=== PATIENT | male | born 1935 | race Caucasian/White ===

== ENCOUNTER 2016-08-20 15:07 | Emergency (ER) | payer MEDICARE, BC ==
[~2016-08-20] VITALS: Ht 175.3 cm; Wt 60.3 kg
[~2016-08-20 15:07] MED LIST: ALBU5SOL6 IH; ASPI-730 PO; BUDE10.2 PO; CHOL10003 PO; CLOP75TA PO; CRAN500C3 PO; CYAN1TAB46 PO; FERR-67 PO; LISI-127 PO; METO100T60 PO; MULT-261 PO; NITR0.4T28 SL; PRED5TAB PO; ROSU10TA13 PO; TIOT18CA6 IH; [UNRECOGNIZED DRUG - CODE] PO
[2016-08-20 15:10] VITALS: Ht 175.3 cm; Wt 60.3 kg
--- OUTSIDE RECORDS SUMMARY | 2016-08-20 15:11 | XMS REPORT | Continuity of Care Document ---
Author Author [facility] Organization [facility] Address Unknown Phone Unavailable Support Name Relationship Address Phone BONNIE CARDOSO DO Caregiver [address] [phone] ANALISA BADILLO MD Caregiver [address] [address] Unavailable YUNIEL FLETCHER MD Caregiver [address] [place] [address] [address] [place], [place] [phone] MANSI DANIELS Next Of Kin Unknown [phone] CP Insurance Providers Payer Name Policy Number Subscriber Name Relationship Medicare [id number] Tracey Estrella 16 Self [facility] [id number] Tracey Estrella 16 Self Advance Directives Directive Response Recorded Date/Time Advanced Directives Type Living Will 10/20/13 11:39am Problems Medical Problems Problem Onset Date Status Chest pain Unknown Active Multiple fractures of ribs of left side with routine healing Unknown Active COPD exacerbation Unknown Active Fecal impaction Unknown Active Fecal impaction Unknown Active Constipation Unknown Active Fecal impaction Unknown Active Medications Medication Dose Route Sig Days/Qty Instructions Order Date Discontinued Date Status Tiotropium Cobb 18 Mcg IH DAILY 02/16/10 Active Flunisolide 250 Mg IH TWICE A DAY 11/14/08 02/16/10 Discontinued Albuterol Sulfate Mg IH NEEDED 02/16/10 Active Lovastatin 10 Mg PO DAILY 11/14/08 01/31/09 Discontinued Metoprolol Tartrate 50 Mg PO TWICE A DAY 02/16/10 Active Diltiazem Hcl 180 Mg PO DAILY 02/16/10 Active Folic Acid 400 Mg PO DAILY 02/16/10 Active Aspirin 81 Mg PO DAILY 11/14/08 02/16/10 Discontinued [Multi Vitamin] DAILY 02/16/10 Active Niacin 1,000 Mg PO DAILY 09/23/08 11/13/08 Discontinued Nitroglycerin 0.4 Mg SL NEEDED PRN 02/16/10 Active Loratadine 10 Mg PO DAILY 01/31/09 02/16/10 Discontinued Rosuvastatin Calcium 10 Mg PO DAILY 02/16/10 Active Aspirin 81 Mg PO DAILY 02/16/10 Active [cranberry vitamin] 1,680 Mg PO DAILY 02/16/10 Active Lisinopril 5 Mg PO DAILY 02/04/13 Active Cholecalciferol 1,000 Unit PO DAILY 02/04/13 Active Formoterol Fumarate 12 Mcg IH TWICE A DAY 10/10/13 Active Mometasone Furoate 220 Mcg IH BEDTIME 10/10/13 Active Azithromycin 1 Pack PO DIRECTED 1 Qty Take 2 tabs the first day then 1 tab daily on days 2 though 10/10/13 Active Hydrocodone Bit/Acetaminophen 1 Tab PO Every 6 Hours PRN PAIN 20 Qty Active Prednisone 20 Mg PO DIRECTED 18 Qty Take 2 pills for 3 days then, 04/13 Active Social History Social History Problem Response Recorded Date/Time Smoking Status Former smoker 10/20/2013 11:40am Hx Substance Use No 10/20/2013 11:40am Hx Alcohol Use Y BEER OCC 10/20/2013 11:40am Query Response Start Date Stop Date Smoking Status Former smoker Hospital Discharge Instructions No hospital discharge instructions. Plan of Care No plan of care. Functional Status No functional status results. Allergies, Adverse Reactions, Alerts Allergen Type Severity Reaction Status Last Updated No Known Allergies Active 10/20/13 Immunizations Name Given Type Hx Influenza Vaccination Y FA LL 2007 Historical Hx Pneumococcal Vaccination Y FALL 2007 Historical Hx Influenza Vaccination Y FA 2007 Historical Vital Signs Acute Vital Signs Vital Response Date/Time Temperature (Fahrenheit) 96.6 deg F (96.8 - 99.1) Temperature (Calculated Celsius) 35.49692 degrees C (36.0 - 37.3) Pulse Rate (adult) 86 bpm (60 - 100) Respiratory Rate 20 breaths/min (10 - 20) O2 Sat by Pulse Oximetry 94 % (90 - 100) Oxygen Flow Rate 3 L/min Blood Pressure 134/60 mm Hg Height 5 ft 9 in Weight 147 lb Body Mass Index 21.0 kg/m^2 Results Test Source Date Result Interp. Ref. Range Comments Activated Partial Thromboplast Time February 04, 2013 10:40am 27.5 SEC N 24-36 Alanine Aminotransferase (ALT/SGPT) October 10, 2013 9:10am 35 U/L N 21-72 Albumin October 10, 2013 9:10am 3.8 G/DL N 3.5-5.0 Albumin/Globulin Ratio October 10, 2013 9:10am 1.2 RATIO N 1.1-2.2 Alkaline Phosphatase October 10, 2013 9:10am 87 U/L N 38-126 Anion Gap October 10, 2013 9:10am 10 MEQ/L N 5-15 Arterial Blood Base Excess February 16, 2010 5:35am 0.1 MMOL/L N -2.0- 2.0 Arterial Blood HCO3 February 16, 2010 5:35am 25 MEQ/L N 22-26 Arterial Blood Oxygen Content February 16, 2010 5:35am 15 - Arterial Blood Oxygen Saturation February 16, 2010 5:35am 100.0 % H 95.0- 98.0 Arterial Blood Partial Pressure CO2 February 16, 2010 5:35am 39 MMHG N 34 -45 Arterial Blood Total CO2 February 16, 2010 5:35am 25.9 MEQ/L N 23-27 Arterial Blood pH February 16, 2010 5:35am 7.410 N 7.350-7.450 Aspartate Amino Transf (AST/SGOT) October 10, 2013 9:10am 30 U/L N 17-59 B-Type Natriuretic Peptide February 16, 2010 5:09am 34 PG/ML N 15-100 BUN/Creatinine Ratio October 10, 2013 9:10am 28 RATIO H 6-26 Band Neutrophils # February 16, 2010 5:09am 0.2 T/MM3 - Band Neutrophils % February 16, 2010 5:09am 12.0 % H 0-6 Basophils # (Auto) October 10, 2013 9:10am 0.0 T/MM3 N 0-0.2 Basophils # (Manual) September 19, 2008 10:40am 0.1 T/MM3 N 0-0.2 Basophils % (Manual) September 19, 2008 10:40am 1.0 % N 0-2 Basophils (%) (Auto) October 10, 2013 9:10am 0.2 % N 0-2 Blood Gas Tidal Volume February 16, 2010 5:35am Not Performed 0-1200 Blood Gas Vent Rate February 16, 2010 5:35am Not Performed 0-30 Blood Urea Nitrogen October 10, 2013 9:10am 17.0 MG/DL N 9-20 Calcium Level October 10, 2013 9:10am 9.4 MG/DL N 8.4-10.2 Calculated Osmolality October 10, 2013 9:10am 276 MOSM/KG N 261-280 Carbon Dioxide Level October 10, 2013 9:10am 30 MEQ/L N 22-30 Chloride Level October 10, 2013 9:10am 100 MEQ/L N 98-107 Creatinine October 10, 2013 9:10am 0.6 MG/DL L 0.8-1.5 Differential Total Cells Counted February 16, 2010 5:09am 100 % - Eosinophils # (Auto) October 10, 2013 9:10am 0.1 T/MM3 N 0-0.5 Eosinophils # (Manual) September 19, 2008 10:40am 0.1 T/MM3 N 0-0.5 Eosinophils % (Manual) September 19, 2008 10:40am 1.0 % N 0-4 Eosinophils (%) (Auto) October 10, 2013 9:10am 0.6 % N 0-4 Globulin October 10, 2013 9:10am 3.2 G/DL N 2.4-3.6 Glucose Level October 10, 2013 9:10am 193 MG/DL H 75-110 Hematocrit October 10, 2013 9:10am 41.9 % N 41-53 Hemoglobin October 10, 2013 9:10am 13.2 GM/DL L 13.5-17.5 Lymphocytes # (Auto) October 10, 2013 9:10am 1.0 T/MM3 N 1-4.8 Lymphocytes # (Manual) February 16, 2010 5:09am 0.5 T/MM3 L 1-4.8 Lymphocytes % (Manual) February 16, 2010 5:09am 32.0 % N 23-45 Lymphocytes (%) (Auto) October 10, 2013 9:10am 7.7 % L 23-45 Magnesium Level October 10, 2013 9:10am 1.6 MG/DL N 1.6-2.3 Mean Corpuscular Hemoglobin October 10, 2013 9:10am 27.0 UUG N 26-34 Mean Corpuscular Hemoglobin Concent October 10, 2013 9:10am 31.5 GM/DL N 31 -37 Mean Corpuscular Volume October 10, 2013 9:10am 85.7 UM3 N 80-100 Mean Platelet Volume October 10, 2013 9:10am 9.8 UM3 N 9.4-12.4 Monocytes # (Auto) October 10, 2013 9:10am 0.9 T/MM3 H 0-0.8 Monocytes # (Manual) February 16, 2010 5:09am 0.0 T/MM3 N 0-0.8 Monocytes % (Manual) February 16, 2010 5:09am 2.0 % N 0-9.0 Monocytes (%) (Auto) October 10, 2013 9:10am 6.9 % N 0-9.0 Neutrophils # (Auto) October 10, 2013 9:10am 10.5 T/MM3 H 1.8-7.7 Neutrophils # (Manual) February 16, 2010 5:09am 0.8 T/MM3 L 1.8-7.7 Neutrophils % (Manual) February 16, 2010 5:09am 52.0 % N 33-66 Neutrophils (%) (Auto) October 10, 2013 9:10am 84.1 % H 33-66 Platelet Count October 10, 2013 9:10am 240 T/MM3 N 130-400 Potassium Level October 10, 2013 9:10am 3.7 MEQ/L N 3.6-5 Prothromb Time International Ratio February 04, 2013 10:40am 0.94 N 0.86- 1.10 THERAPUTIC RANGE=2.00-3.00 FOR ANTI-THROMBOSIS THERAPUTIC RANGE=2.50- 3.50 FOR IMPLANTED VALVE RDW Standard Deviation October 10, 2013 9:10am 47.8 FL N 36.9-50.2 Red Blood Count October 10, 2013 9:10am 4.89 M/MM3 N 4.50-5.90 Sodium Level October 10, 2013 9:10am 140 MEQ/L N 134-144 Total Bilirubin October 10, 2013 9:10am 0.40 MG/DL N 0.20-1.30 Total Protein October 10, 2013 9:10am 7.0 G/DL N 6.3-8.2 Troponin I October 10, 2013 9:10am < 0.012 ng/ml 0-0.12 Urine Bilirubin February 16, 2010 7:05am Negative - Has specimen been collected/obtained? Y Urine Blood February 16, 2010 7:05am Trace H - Has specimen been collected/obtained? Y Urine Collection Type February 16, 2010 7:05am Voided - Has specimen been collected/obtained? Y Urine Color February 16, 2010 7:05am Yellow - Has specimen been collected/obtained? Y Urine Glucose (UA) February 16, 2010 7:05am Negative - Has specimen been collected/obtained? Y Urine Ketones February 16, 2010 7:05am Negative - Has specimen been collected/obtained? Y Urine Leukocyte Esterase February 16, 2010 7:05am Trace H - Has specimen been collected/obtained? Y Urine Nitrite February 16, 2010 7:05am Negative - Has specimen been collected/obtained? Y Urine Protein February 16, 2010 7:05am 2+ H - Has specimen been collected/obtained? Y Urine RBC February 16, 2010 7:05am 1-3 /HPF - Has specimen been collected/obtained? Y Urine Specific [place] February 16, 2010 7:05am 1.015 - Has specimen been collected/obtained? Y Urine Squamous Epithelial Cells February 16, 2010 7:05am Few - Has specimen been collected/obtained? Y Urine Turbidity February 16, 2010 7:05am Clear - Has specimen been collected/obtained? Y Urine Urobilinogen February 16, 2010 7:05am Normal EU/DL - Has specimen been collected/obtained? Y Urine WBC February 16, 2010 7:05am 1-3 /HPF - Has specimen been collected/obtained? Y Urine pH February 16, 2010 7:05am 6.0 - Has specimen been collected/ obtained? Y White Blood Count October 10, 2013 9:10am 12.5 T/MM3 H 4.5-11.0 Chemistry Specimen Hemolysis October 10, 2013 9:10am < 15 0-25 0-25: No Hemolysis.26-70: Slight Hemolysis - can falsely elevate K and Urine Protein. 71-285: Moderate Hemolysis - can falsely elevate K, Troponin I, CA 19-9, PTH, CSF GLucose, and Urine Protein, and can falsely decrease Phenytoin. 286-999: Gross Hemolysis - can falsely elevate K, Troponin I, CA 19-9, PTH, CSF Glucose, and Urine Protine, and can falsely decrease Phenytoin. Recommend specimen recollection. Oxygen Delivery Method (LAB) February 16, 2010 5:35am Simple mask, liters - EKG September 23, 2008 5:39am Complete - Turbidity October 10, 2013 9:10am < 20 0-20 Reactive Lymphocytes % February 16, 2010 5:09am 2.0 % H 0-0 Glomerular Filtration Rate Calc October 10, 2013 9:10am 130 - Reactive Lymphocytes # February 16, 2010 5:09am 0.0 T/MM3 N 0-0 Immature Granulocyte # (Auto) October 10, 2013 9:10am 0.06 T/MM3 H 0.00- 0.03 Immature Granulocyte % (Auto) October 10, 2013 9:10am 0.5 % N 0.0-0.5 Arterial Blood pO2 at Patient Temp February 16, 2010 5:35am 209 MMHG H 80 -100 Icterus Index October 10, 2013 9:10am < 2 0-7 JT-[id number]-Type Natriuretic Peptide October 10, 2013 9:10am 1030 PG/ML H 0- 175 Rule in cut points: <50 years old=450; 50-75 years old=900; >75 years old=1800; When utilizing ProBNP rule-in cut points, adjustment for impaired renal function is typically not required. Blood Culture Blood February 16, 2010 5:45am Escherichia Coli Procedures Procedure Status Date Provider(s) THER/PROPH/DIAG INJ IV PUSH completed 10/10/13 Encounters Encounter Location Date/Time Departed Emergency Room [facility] 10/20/13 10:52am Departed Emergency Room [facility] 10/10/13 9:21am Recent Diagnosis
--- OUTSIDE RECORDS SUMMARY | 2016-08-20 15:11 | XMS REPORT | Referral Summary ---
Author Author [facility] Organization 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) COPD (chronic Active patient obstructive pulmonary disease)(Confirmed) CAD (coronary artery Active patient disease)(Confirmed) Impaired gas Resolved exchange(Confirmed)1 Knowledge Resolved deficit(Confirmed)2 NM (myocardial Active patient infarction)(Confirme d) Tobacco Active patient user(Confirmed) 1Problem added automatically by system based on initiation of Impaired Gas Exchange Plan of Care 2Problem added automatically by system based on initiation of Knowledge Deficit Plan of Care Allergies, Adverse Reactions, Alerts No Known Medication Allergies Medications acetaminophen 325 mg oral tablet 2 tabs, Oral, q4hr, Other (See Comment), 0 Refill(s) Start Date: 06/12/14 Status: Ordered albuterol CFC free 90 mcg/inh inhalation aerosol 2 puffs, Inhalation, QID, as needed for wheezing, rescue inhaler, 0 Refill(s) Start Date: 06/09/14 Status: Ordered aspirin 325 mg, Oral, Daily, 0 Refill(s) Start Date: 06/09/14 Status: Ordered azithromycin 250 mg oral tablet 1 tabs, Oral, Daily, # 2 Each, 0 Refill(s) Start Date: 06/14/14 Stop Date: 06/16/14 Status: Ordered cranberry 1,680 mg, Oral, Daily, 0 Refill(s) Start Date: 06/09/14 Status: Ordered diltiazem 240 mg, Oral, Daily, 0 Refill(s) Start Date: 06/09/14 Status: Ordered folic acid 0.4 mg, Oral, Daily, 0 Refill(s) Start Date: 06/09/14 Status: Ordered lisinopril 20 mg oral tablet 1 tabs, Oral, Daily, 0 Refill(s) Start Date: 06/12/14 Status: Ordered Metoprolol Tartrate 100 mg, Oral, BID, 0 Refill(s) Start Date: 06/09/14 Status: Ordered multivitamin 1 tabs, Oral, Daily, 0 Refill(s) Start Date: 06/09/14 Status: Ordered Nitrostat 0.4 mg, SubLingual, q5min, as needed for chest pain, If chest pain not relieved within 5 minutes of taking the 1st dose, seek immediate medical attention, 0 Refill(s) Start Date: 06/09/14 Status: Ordered omeprazole 20 mg, Oral, Daily, 0 Refill(s) Start Date: 06/09/14 Status: Ordered Plavix 75 mg, Oral, Daily, 0 Refill(s) Start Date: 06/09/14 Status: Ordered rosuvastatin 20 mg, Oral, Daily, 0 Refill(s) Start Date: 06/09/14 Status: Ordered sertraline 50 mg, Oral, Daily, 0 Refill(s) Start Date: 06/09/14 Status: Ordered Spiriva 18 mcg, Inhalation, Daily, 0 Refill(s) Start Date: 06/09/14 Status: Ordered Symbicort 160 mcg-4.5 mcg/inh inhalation aerosol 2 puffs, Inhalation, BID, 0 Refill(s) Start Date: 06/09/14 Status: Ordered Results No data available for this section Immunizations No data available for this section Procedures Procedure Date Related Diagnosis Body Site Placement of stent in cardiac conduit Social History Social History Type Response Smoking Status Former smoker Assessment and Plan No data available for this section
--- OUTSIDE RECORDS SUMMARY | 2016-08-20 15:11 | XMS REPORT | Continuity of Care Document ---
Author Author Terry [facility] LIVE Organization [facility] LIVE Address Unknown Phone Unavailable Support Name Relationship Address Phone YUNIEL FLETCHER MD Caregiver [address] [place] [phone] JONNA GUZMAN MD Caregiver [address] [place] [phone] MANSI DANIELS Next Of Kin Unknown [phone] CP Insurance Providers Payer Name Policy Number Subscriber Name Relationship Medicare [id number] Tracey Estrella 18 Self [facility] [id number] Tracey Estrella 16 Self Advance Directives Directive Response Recorded Date/Time Advanced Directives Type Living Will 10/20/13 11:39am Problems Medical Problems Problem Onset Date Status Chest pain Unknown Active Multiple fractures of ribs of left side with routine healing Unknown Active COPD exacerbation Unknown Active Fecal impaction Unknown Active Fecal impaction Unknown Active Constipation Unknown Active Fecal impaction Unknown Active COPD exacerbation Unknown Active Pneumonia Unknown Active Dyspnea Unknown Active Hypoxia Unknown Active Dyspnea Unknown Active COPD exacerbation Unknown Active Medications Medication Dose Route Sig Days/Qty Instructions Order Date Discontinued Date Status Tiotropium [place] 18 Mcg IH DAILY 02/16/10 Active Flunisolide 250 Mg IH TWICE A DAY 11/14/08 02/16/10 Discontinued Albuterol Sulfate Mg IH NEEDED 02/16/10 Active Lovastatin 10 Mg PO DAILY 11/14/08 01/31/09 Discontinued Metoprolol Tartrate 100 Mg PO TWICE A DAY 02/16/10 Active [...] 10 Mg PO DAILY 02/16/10 Active Aspirin 325 Mg PO DAILY 02/16/10 Active [cranberry vitamin] 1,680 Mg PO DAILY 02/16/10 Active Lisinopril 5 Mg PO DAILY 02/04/13 Active Cholecalciferol 1,000 Unit PO DAILY 02/04/13 Active Clopidogrel Bisulfate 75 Mg PO DAILY 06/26/14 Active Prednisone 20 Mg PO DIRECTED 18 Qty Take 3 pills for 3 days THEN, 02/1207/08/14 Discontinued Social History Social History Problem Response Recorded Date/Time Hx Substance Use No 07/08/2014 8:53pm Hx Alcohol Use Y BEER OCC 07/08/2014 8:53pm Tobacco Usage none 10/10/2013 9:51am Query Response Start Date Stop Date Smoking Status Former smoker Hospital Discharge Instructions No hospital discharge instructions. Plan of Care No plan of care. Functional Status Query Response Date Recorded Physical Hygiene Self July 08, 2014 8:53pm Disabilities None July 08, 2014 8:53pm Devices Used None July 08, 2014 8:53pm Dressing Self July 08, 2014 8:53pm Ambulation Self July 08, 2014 8:53pm Diet Self July 08, 2014 8:53pm Mental Status Alert Oriented July 08, 2014 11:50pm Disabilities None July 08, 2014 8:53pm Devices Used None July 08, 2014 8:53pm Physical Hygiene Self July 08, 2014 8:53pm Dressing Self July 08, 2014 8:53pm Ambulation Self July 08, 2014 8:53pm Diet Self July 08, 2014 8:53pm Allergies, Adverse Reactions, Alerts Allergen Type Severity Reaction Status Last Updated No Known Allergies Active 10/20/13 Immunizations Name Given Type Hx Influenza Vaccination Y FALL 2013 Historical Hx Pneumococcal Vaccination Y FALL 2007 Historical Hx Influenza Vaccination Y FALL 2013 Historical Vital Signs Acute Vital Signs Vital Response Date/Time Temperature (Fahrenheit) 96.9 deg F (96.8 - 99.1) Temperature (Calculated Celsius) 36.03055 degrees C (36.0 - 37.3) Pulse Rate (adult) 80 bpm (60 - 100) Respiratory Rate 32 breaths/min (10 - 20) O2 Sat by Pulse Oximetry 93 % (90 - 100) Oxygen Flow Rate 3.0 L/min Fraction of Inspired Oxygen (FIO2) 60 % Blood Pressure 131/66 mm Hg Results Test Source Date Result Interp. Ref. Range Comments Thyroid Stimulating Hormone (TSH) July 08, 2014 8:30pm 23.10 MIU/L H 0.47-4.68 Activated Partial Thromboplast Time July 08, 2014 8:30pm 25.1 SEC N 24- 36 Alanine Aminotransferase (ALT/SGPT) July 08, 2014 8:30pm 25 U/L N 21- 72 Albumin July 08, 2014 8:30pm 3.6 G/DL N 3.5-5.0 Albumin/Globulin Ratio July 08, 2014 8:30pm 1.2 RATIO N 1.1-2.2 Alkaline Phosphatase July 08, 2014 8:30pm 82 U/L N 38-126 Anion Gap July 08, 2014 8:30pm 10 MEQ/L N 5-15 Arterial Blood Base Excess July 08, 2014 9:16pm 6.3 MMOL/L H -2.0-2.0 Arterial Blood HCO3 July 08, 2014 9:16pm 35 MEQ/L H 22-26 Arterial Blood Oxygen Content February 16, 2010 5:35am 15 - Arterial Blood Oxygen Saturation July 08, 2014 9:16pm 84.0 % L 95.0- 98.0 Arterial Blood Partial Pressure CO2 July 08, 2014 9:16pm 67 MMHG PH 34- 45 Arterial Blood Total CO2 July 08, 2014 9:16pm 36.6 MEQ/L H 23-27 Arterial Blood pH July 08, 2014 9:16pm 7.320 L 7.350-7.450 Arterial Blood pO2 at Patient Temp July 08, 2014 9:16pm 53 MMHG L 80- 100 Aspartate Amino Transf (AST/SGOT) July 08, 2014 8:30pm 28 U/L N 17-59 B-Type Natriuretic Peptide February 16, 2010 5:09am 34 PG/ML N 15-100 BUN/Creatinine Ratio July 08, 2014 8:30pm 22 RATIO N 6-26 Band Neutrophils # July 08, 2014 8:30pm 0.1 T/MM3 - Band Neutrophils % July 08, 2014 8:30pm 1.0 % N 0-6 Basophils # (Auto) October 10, 2013 9:10am 0.0 T/MM3 N 0-0.2 Basophils # (Manual) September 19, 2008 10:40am 0.1 T/MM3 N 0-0.2 Basophils % (Manual) September 19, 2008 10:40am 1.0 % N 0-2 Basophils (%) (Auto) October 10, 2013 9:10am 0.2 % N 0-2 Blood Gas Oxygen Liter Flow July 08, 2014 9:16pm 6 - Blood Gas Oxygen Percent Given July 08, 2014 9:16pm - Blood Gas Tidal Volume July 08, 2014 9:16pm 0-1200 Blood Gas Vent Rate July 08, 2014 9:16pm 0-30 Blood Urea Nitrogen July 08, 2014 8:30pm 22.0 MG/DL H 9-20 Calcium Level July 08, 2014 8:30pm 9.1 MG/DL N 8.4-10.2 Calculated Osmolality July 08, 2014 8:30pm 291 MOSM/KG H 261-280 Carbon Dioxide Level July 08, 2014 8:30pm 33 MEQ/L H 22-30 Chemistry Specimen Hemolysis July 08, 2014 8:30pm < 15 0-25 0-25: No Hemolysis.26-70: Slight [...] can falsely decrease Phenytoin. Recommend specimen recollection. Chloride Level July 08, 2014 8:30pm 102 MEQ/L N 98-107 Creatinine July 08, 2014 8:30pm 1.0 MG/DL N 0.8-1.5 D-Dimer June 26, 2014 3:15pm 720 NG/ML H 0-230 <230 NG/ML D-DU= PRESUMPTIVE NEGATIVE FOR PE OR DVT>230 NG/ML D-DU=ADDITIONAL EVAL FOR PE OR DVT RECOMMENDED Differential Total Cells Counted February 16, 2010 5:09am 100 % - EKG September 23, 2008 5:39am Complete - Eosinophils # (Auto) October 10, 2013 9:10am 0.1 T/MM3 N 0-0.5 Eosinophils # (Manual) July 08, 2014 8:30pm 0.1 T/MM3 N 0-0.5 Eosinophils % (Manual) July 08, 2014 8:30pm 1.0 % N 0-4 Eosinophils (%) (Auto) October 10, 2013 9:10am 0.6 % N 0-4 Globulin July 08, 2014 8:30pm 2.9 G/DL N 2.4-3.6 Glomerular Filtration Rate Calc July 08, 2014 8:30pm 72 - Glucose Level July 08, 2014 8:30pm 263 MG/DL H 75-110 Hematocrit July 08, 2014 8:30pm 38.8 % L 41-53 Hemoglobin July 08, 2014 8:30pm 11.6 GM/DL L 13.5-17.5 Icterus Index July 08, 2014 8:30pm < 2 0-7 Immature Granulocyte # (Auto) October 10, 2013 9:10am 0.06 T/MM3 H 0.00- 0.03 Immature Granulocyte % (Auto) October 10, 2013 9:10am 0.5 % N 0.0-0.5 Influenza Type A Antigen June 26, 2014 5:40pm Negative - Negative for Flu A protein antigen. Assay sensitivity is90%. Influenza Type B Antigen June 26, 2014 5:40pm Negative - Negative for Flu B protein antigen. Assay sensitivity is90%. Lymphocytes # (Auto) October 10, 2013 9:10am 1.0 T/MM3 N 1-4.8 Lymphocytes # (Manual) July 08, 2014 8:30pm 2.4 T/MM3 N 1-4.8 Lymphocytes % (Manual) July 08, 2014 8:30pm 27.0 % N 23-45 Lymphocytes (%) (Auto) October 10, 2013 9:10am 7.7 % L 23-45 Magnesium Level July 08, 2014 8:30pm 2.2 MG/DL N 1.6-2.3 Mean Corpuscular Hemoglobin July 08, 2014 8:30pm 28.0 UUG N 26-34 Mean Corpuscular Hemoglobin Concent July 08, 2014 8:30pm 29.9 GM/DL L 31-37 Mean Corpuscular Volume July 08, 2014 8:30pm 93.5 UM3 N 80-100 Mean Platelet Volume July 08, 2014 8:30pm 9.3 UM3 L 9.4-12.4 Monocytes # (Auto) October 10, 2013 9:10am 0.9 T/MM3 H 0-0.8 Monocytes # (Manual) July 08, 2014 8:30pm 0.8 T/MM3 N 0-0.8 Monocytes % (Manual) July 08, 2014 8:30pm 9.0 % N 0-9.0 Monocytes (%) (Auto) October 10, 2013 9:10am 6.9 % N 0-9.0 NZ-Kqa-R-Type Natriuretic Peptide July 08, 2014 8:30pm 3590 PG/ML H 0- 175 Rule in cut points: <50 years old=450; 50-75 years old=900; >75 years old=1800; When utilizing ProBNP rule-in cut points, adjustment for impaired renal function is typically not required. Neutrophils # (Auto) October 10, 2013 9:10am 10.5 T/MM3 H 1.8-7.7 Neutrophils # (Manual) July 08, 2014 8:30pm 5.5 T/MM3 N 1.8-7.7 Neutrophils % (Manual) July 08, 2014 8:30pm 62.0 % N 33-66 Neutrophils (%) (Auto) October 10, 2013 9:10am 84.1 % H 33-66 Oxygen Delivery Method (LAB) July 08, 2014 9:16pm Nasal cannula,liters - Platelet Count July 08, 2014 8:30pm 238 T/MM3 N 130-400 Potassium Level July 08, 2014 8:30pm 4.2 MEQ/L N 3.6-5 Prothromb Time International Ratio July 08, 2014 8:30pm 0.94 N 0.81- 1.09 THERAPUTIC RANGE=2.00-3.00 FOR ANTI-THROMBOSIS THERAPUTIC RANGE=2.50- 3.50 FOR IMPLANTED VALVE RDW Standard Deviation July 08, 2014 8:30pm 55.2 FL H 36.9-50.2 Reactive Lymphocytes # February 16, 2010 5:09am 0.0 T/MM3 N 0-0 Reactive Lymphocytes % February 16, 2010 5:09am 2.0 % H 0-0 Red Blood Count July 08, 2014 8:30pm 4.15 M/MM3 L 4.50-5.90 Red Cell Morphology Comment July 08, 2014 8:30pm Normal - Sodium Level July 08, 2014 8:30pm 145 MEQ/L H 134-144 Total Bilirubin July 08, 2014 8:30pm 0.20 MG/DL N 0.20-1.30 Total Protein July 08, 2014 8:30pm 6.5 G/DL N 6.3-8.2 Troponin I July 08, 2014 8:30pm 0.023 ng/ml N 0-0.12 Turbidity July 08, 2014 8:30pm < 20 0-20 Urine Bilirubin February 16, 2010 7:05am Negative [...] Has specimen been collected/obtained? Y Urine Specific [place] February 16, 2010 7:05am 1.015 - Has [...] - Has specimen been collected/ obtained? Y Venous Blood Lactate June 26, 2014 4:01pm 3.4 MMOL/L H 0.6-2.2 White Blood Count July 08, 2014 8:30pm 8.8 T/MM3 N 4.5-11.0 Blood Culture Peripheral Blood June 26, 2014 4:07pm NO GROWTH AFTER 5 DAYS Name: TRACEY ESTRELLA Unit #: [id number] : 1935 Sex: M Loc / Svc: ED DOS: 06/26/14 Signed Report #: [id number] DIAGNOSTIC IMAGING REPORT TYPE OF EXAM: CHEST, PA & LATERAL Dictated By: MAXINE SETHI MD INDICATION: ITS.REASON: DYSPNEA, COUGH, RECENT PNEUMONIA CHEST 2-VIEWS UPRIGHT (PA & LAT) COMPARISON: October 10, 2013 FINDINGS: New diffuse airspace opacity throughout both mid to lower lung connor. Areas of bronchiectasis are also noted. Severe emphysema. No pneumothorax. Small bilateral effusions. Heart size is stable. Mediastinal contours are unchanged. Central pulmonary arteries are enlarged suggesting pulmonary artery hypertension. Left cardiac pacemaker defibrillator again noted with right atrial and right ventricular leads. Old bilateral rib deformities Impression: New extensive bilateral mid to lower lung infiltrates which may represent pneumonia, typical or atypical or aspiration. Given the extensive abnormal appearance and significant change since the comparison study, atypical etiologies such as tuberculosis should be considered. There is probably also a superimposed element of mild pulmonary edema. . Procedures Procedure Status Date Provider(s) ROUTINE VENIPUNCTURE completed 06/26/14 CHEST X-RAY 2VW FRONTAL&LATL completed 06/26/14 COMPREHEN METABOLIC PANEL completed 06/26/14 BLOOD GASES ANY COMBINATION completed 06/26/14 ASSAY OF LACTIC ACID completed 06/26/14 ASSAY OF NATRIURETIC PEPTIDE completed 06/26/14 ASSAY OF TROPONIN QUANT completed 06/26/14 BL SMEAR W/DIFF WBC COUNT completed 06/26/14 COMPLETE CBC AUTOMATED completed 06/26/14 FIBRIN DEGRADATION QUANT completed 06/26/14 PROTHROMBIN TIME completed 06/26/14 THROMBOPLASTIN TIME PARTIAL completed 06/26/14 BLOOD CULTURE FOR BACTERIA completed 06/26/14 BLOOD CULTURE FOR BACTERIA completed 06/26/14 INFLUENZA A/B AG EIA completed 06/26/14 ELECTROCARDIOGRAM TRACING completed 06/26/14 AIRWAY INHALATION TREATMENT completed 06/26/14 CBT 1ST HOUR completed 06/26/14 HYDRATE IV INFUSION ADD-ON completed 06/26/14 THER/PROPH/DIAG IV INF INIT completed 06/26/14 TX/PRO/DX INJ NEW DRUG ADDON completed 06/26/14 EMERGENCY DEPT VISIT completed 06/26/14 182817"INJECTION, LEVOFLOXACIN, 250 MG" completed 06/26/14463041"INJECTION, METHYLPREDNISOLONE SODIUM SUCCINATE, UP TO completed 003"INFUSION, NORMAL SALINE SOLUTION , 1000 CC" completed 06/26/148364736% DEXTROSE/WATER (500 ML=1 UNIT) completed 06/26/14 Encounters Encounter Location Date/Time Departed Emergency Room [facility] 07/08/14 8:32pm Departed Emergency Room [facility] 06/26/14 3:33pm Recent Diagnosis
--- OUTSIDE RECORDS SUMMARY | 2016-08-20 15:11 | XMS REPORT | Continuity of Care Document ---
Author Author [facility] Organization [facility] Address Unknown Phone Unavailable Allergies Active Description Code Type Severity Reaction Onset Reported/Identified Relationship to Patient Clinical Status Yes No Known Medication Allergies NKMA N/A N/A 06/09/2014 Medications Problems Date Dx Coded Attending Type Code Diagnosis Diagnosed By 06/09/2014 Baldomero Blank MD Admitting 486 06/19/2014 Baldomero Blank MD Final 250.00 Diabetes mellitus without mention of complication, type II or unspecified t 06/19/2014 Baldomero Blank MD Final 401.9 UNSPECIFIED ESSENTIAL HYPERTENSION 06/19/2014 Baldomero Blank MD Final 414.[address] 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 Visit Date/Time Discharge Status Pt. Type Provider Facility Loc./Unit Complaint [id number] 06/09/2014 09:40:00 2014 14:31:00 DIS Inpatient Baldomero Blank MD [facility] F7SE Pneumonia/ COPD exacerbation/ Resiratory Distress
--- OUTSIDE RECORDS SUMMARY | 2016-08-20 15:11 | XMS REPORT | Continuity of Care Document ---
Author Author Terry [facility] LIVE Organization [facility] LIVE Address Unknown Phone Unavailable Support Name Relationship Address Phone YUNIEL FLETCHER MD Caregiver [address] [place] [phone] FANNY BARBA MD Caregiver [address] [place] [phone] AMNSI DANIESL Next Of Kin Unknown [phone] Insurance Providers Payer Name Policy Number Subscriber Name Relationship Medicare [id number] Tracey Estrella 18 Self [facility] [id number] Tracey Estrella 18 Self Advance Directives Directive [...] Active Hypoxia Unknown Active Dyspnea Unknown Active Medications Medication Dose Route Sig Days/Qty Instructions Order Date Discontinued Date Status Tiotropium [place] 18 Mcg IH DAILY 02/16/10 Active Flunisolide [...] Bisulfate 75 Mg PO DAILY 06/26/14 Active Social History Social History Problem Response Recorded Date/Time Hx Substance Use No 06/26/2014 4:23pm Hx Alcohol Use Y BEER OCC 06/26/2014 4:23pm Tobacco Usage none 10/10/2013 9:51am Query Response Start Date Stop Date Smoking Status Former smoker Hospital Discharge Instructions No hospital discharge instructions. Plan of Care No plan of care. Functional Status Query Response Date Recorded Physical Hygiene Self June 26, 2014 4:23pm Disabilities None June 26, 2014 4:23pm Devices Used None June 26, 2014 4:23pm Dressing Self June 26, 2014 4:23pm Ambulation Self June 26, 2014 4:23pm Diet Self June 26, 2014 4:23pm Mental Status Alert Oriented June 26, 2014 5:41pm Disabilities None June 26, 2014 4:23pm Devices Used None June 26, 2014 4:23pm Physical Hygiene Self June 26, 2014 4:23pm Dressing Self June 26, 2014 4:23pm Ambulation Self June 26, 2014 4:23pm Diet Self June 26, 2014 4:23pm Allergies, Adverse Reactions, Alerts Allergen Type Severity Reaction Status Last Updated No Known Allergies Active 10/20/13 Immunizations Name Given Type Hx Influenza Vaccination Y FALL 2013 Historical Hx Pneumococcal Vaccination Y FALL 2007 Historical Hx Influenza Vaccination Y FALL 2013 Historical Vital Signs Acute Vital Signs Vital Response Date/Time Temperature (Fahrenheit) 96.9 deg F (96.8 - 99.1) Temperature (Calculated Celsius) 36.25266 degrees C (36.0 - 37.3) Pulse Rate (adult) 96 bpm (60 - 100) Respiratory Rate 18 breaths/min (10 - 20) O2 Sat by Pulse Oximetry 92 % (90 - 100) Oxygen Flow Rate 4.5 L/min Blood Pressure 122/97 mm Hg Height 5 ft 9 in Weight 144 lb Body Mass Index 21.0 kg/m^2 Results Test Source Date Result Interp. Ref. Range Comments Influenza Type B Antigen June 26, 2014 5:40pm Negative - Negative for Flu B protein antigen. Assay sensitivity is90%. Influenza Type A Antigen June 26, 2014 5:40pm Negative - Negative for Flu A protein antigen. Assay sensitivity is90%. Activated Partial Thromboplast Time June 26, 2014 3:15pm 22.5 SEC L 24-36 Ordering r/o VTE Yes Alanine Aminotransferase (ALT/SGPT) June 26, 2014 3:15pm 63 U/L N 21 -72 Albumin June 26, 2014 3:15pm 3.7 G/DL N 3.5-5.0 Albumin/Globulin Ratio June 26, 2014 3:15pm 1.3 RATIO N 1.1-2.2 Alkaline Phosphatase June 26, 2014 3:15pm 70 U/L N 38-126 Anion Gap June 26, 2014 3:15pm 14 MEQ/L N 5-15 Arterial Blood Base Excess June 26, 2014 4:35pm 1.7 MMOL/L N -2.0- 2.0 Arterial Blood HCO3 June 26, 2014 4:35pm 29 MEQ/L H 22-26 Arterial Blood Oxygen Content February 16, 2010 5:35am 15 - Arterial Blood Oxygen Saturation June 26, 2014 4:35pm 85.0 % L 95.0- 98.0 Arterial Blood Partial Pressure CO2 June 26, 2014 4:35pm 56 MMHG H 34-45 Arterial Blood Total CO2 June 26, 2014 4:35pm 30.6 MEQ/L H 23-27 Arterial Blood pH June 26, 2014 4:35pm 7.320 L 7.350-7.450 Arterial Blood pO2 at Patient Temp June 26, 2014 4:35pm 55 MMHG L 80 -100 Aspartate Amino Transf (AST/SGOT) June 26, 2014 3:15pm 68 U/L H 17- 59 B-Type Natriuretic Peptide February 16, 2010 5:09am 34 PG/ML N 15-100 BUN/Creatinine Ratio June 26, 2014 3:15pm 17 RATIO N 6-26 Band Neutrophils # June 26, 2014 3:15pm 0.5 T/MM3 - Band Neutrophils % June 26, 2014 3:15pm 3.0 % N 0-6 Basophils # (Auto) October 10, 2013 9:10am 0.0 T/MM3 N 0-0.2 Basophils # (Manual) September 19, 2008 10:40am 0.1 T/MM3 N 0-0.2 Basophils % (Manual) September 19, 2008 10:40am 1.0 % N 0-2 Basophils (%) (Auto) October 10, 2013 9:10am 0.2 % N 0-2 Blood Gas Oxygen Liter Flow June 26, 2014 4:35pm 4 - Blood Gas Oxygen Percent Given June 26, 2014 4:35pm - Blood Gas Tidal Volume June 26, 2014 4:35pm 0-1200 Blood Gas Vent Rate June 26, 2014 4:35pm 0-30 Blood Urea Nitrogen June 26, 2014 3:15pm 20.0 MG/DL N 9-20 Calcium Level June 26, 2014 3:15pm 9.2 MG/DL N 8.4-10.2 Calculated Osmolality June 26, 2014 3:15pm 289 MOSM/KG H 261-280 Carbon Dioxide Level June 26, 2014 3:15pm 26 MEQ/L N 22-30 Chemistry Specimen Hemolysis June 26, 2014 3:15pm < 15 0-25 0-25 : No Hemolysis.26-70: Slight Hemolysis - can falsely elevate K and Urine Protein. 71-285: Moderate Hemolysis - can falsely elevate K, Troponin I, CA 19-9, PTH, CSF GLucose, and Urine Protein, and can falsely decrease Phenytoin. 286-999: Gross Hemolysis - can falsely elevate K, Troponin I, CA 19-9, PTH, CSF Glucose, and Urine Protine, and can falsely decrease Phenytoin. Recommend specimen recollection. Chloride Level June 26, 2014 3:15pm 104 MEQ/L N 98-107 Creatinine June 26, 2014 3:15pm 1.2 MG/DL N 0.8-1.5 D-Dimer June 26, 2014 3:15pm 720 NG/ML H 0-230 <230 NG/ML D-DU= PRESUMPTIVE NEGATIVE FOR PE OR DVT>230 NG/ML D-DU=ADDITIONAL EVAL FOR PE OR DVT RECOMMENDED Differential Total Cells Counted February 16, 2010 5:09am 100 % - EKG September 23, 2008 5:39am Complete - Eosinophils # (Auto) October 10, 2013 9:10am 0.1 T/MM3 N 0-0.5 Eosinophils # (Manual) June 26, 2014 3:15pm 0.4 T/MM3 N 0-0.5 Eosinophils % (Manual) June 26, 2014 3:15pm 2.0 % N 0-4 Eosinophils (%) (Auto) October 10, 2013 9:10am 0.6 % N 0-4 Globulin June 26, 2014 3:15pm 2.8 G/DL N 2.4-3.6 Glomerular Filtration Rate Calc June 26, 2014 3:15pm 58 - Glucose Level June 26, 2014 3:15pm 253 MG/DL H 75-110 Hematocrit June 26, 2014 3:15pm 39.1 % L 41-53 Hemoglobin June 26, 2014 3:15pm 11.8 GM/DL L 13.5-17.5 Icterus Index June 26, 2014 3:15pm < 2 0-7 Immature Granulocyte # (Auto) October 10, 2013 9:10am 0.06 T/MM3 H 0.00- 0.03 Immature Granulocyte % (Auto) October 10, 2013 9:10am 0.5 % N 0.0-0.5 Lymphocytes # (Auto) October 10, 2013 9:10am 1.0 T/MM3 N 1-4.8 Lymphocytes # (Manual) June 26, 2014 3:15pm 2.5 T/MM3 N 1-4.8 Lymphocytes % (Manual) June 26, 2014 3:15pm 14.0 % L 23-45 Lymphocytes (%) (Auto) October 10, 2013 9:10am 7.7 % L 23-45 Magnesium Level October 10, 2013 9:10am 1.6 MG/DL N 1.6-2.3 Mean Corpuscular Hemoglobin June 26, 2014 3:15pm 27.7 UUG N 26-34 Mean Corpuscular Hemoglobin Concent June 26, 2014 3:15pm 30.2 GM/DL L 31-37 Mean Corpuscular Volume June 26, 2014 3:15pm 91.8 UM3 N 80-100 Mean Platelet Volume June 26, 2014 3:15pm 9.5 UM3 N 9.4-12.4 Monocytes # (Auto) October 10, 2013 9:10am 0.9 T/MM3 H 0-0.8 Monocytes # (Manual) June 26, 2014 3:15pm 0.7 T/MM3 N 0-0.8 Monocytes % (Manual) June 26, 2014 3:15pm 4.0 % N 0-9.0 Monocytes (%) (Auto) October 10, 2013 9:10am 6.9 % N 0-9.0 HS-Sfu-A-Type Natriuretic Peptide June 26, 2014 3:15pm 2870 PG/ML H 0-175 Rule in cut points: <50 years old=450; 50-75 years old=900; >75 years old=1800; When utilizing ProBNP rule-in cut points, adjustment for impaired renal function is typically not required. Neutrophils # (Auto) October 10, 2013 9:10am 10.5 T/MM3 H 1.8-7.7 Neutrophils # (Manual) June 26, 2014 3:15pm 13.7 T/MM3 H 1.8-7.7 Neutrophils % (Manual) June 26, 2014 3:15pm 77.0 % H 33-66 Neutrophils (%) (Auto) October 10, 2013 9:10am 84.1 % H 33-66 Oxygen Delivery Method (LAB) June 26, 2014 4:35pm Nasal cannula, liters - Platelet Count June 26, 2014 3:15pm 286 T/MM3 N 130-400 Potassium Level June 26, 2014 3:15pm 4.5 MEQ/L N 3.6-5 Prothromb Time International Ratio June 26, 2014 3:15pm 0.95 N 0.81- 1.09 THERAPUTIC RANGE=2.00-3.00 FOR ANTI-THROMBOSIS THERAPUTIC RANGE=2.50- 3.50 FOR IMPLANTED VALVE RDW Standard Deviation June 26, 2014 3:15pm 53.7 FL H 36.9-50.2 Reactive Lymphocytes # February 16, 2010 5:09am 0.0 T/MM3 N 0-0 Reactive Lymphocytes % February 16, 2010 5:09am 2.0 % H 0-0 Red Blood Count June 26, 2014 3:15pm 4.26 M/MM3 L 4.50-5.90 Sodium Level June 26, 2014 3:15pm 144 MEQ/L N 134-144 Total Bilirubin June 26, 2014 3:15pm 0.40 MG/DL N 0.20-1.30 Total Protein June 26, 2014 3:15pm 6.5 G/DL N 6.3-8.2 Troponin I June 26, 2014 3:15pm 0.021 ng/ml N 0-0.12 Turbidity June 26, 2014 3:15pm < 20 0-20 Urine Bilirubin February 16, [...] Has specimen been collected/obtained? Y Urine Specific [place] February 16, 2010 7:05am 1.015 - Has [...] 3.4 MMOL/L H 0.6-2.2 White Blood Count June 26, 2014 3:15pm 17.8 T/MM3 H 4.5-11.0 Blood Culture Blood February 16, 2010 5:45am Escherichia Coli Name: TRACEY ESTRELLA Unit #: [id number] : 1935 Sex: M Loc / Sv: ED DOS: 06/26/14 Signed Report #: [id number] DIAGNOSTIC IMAGING REPORT TYPE OF EXAM: CHEST, [...] element of mild pulmonary edema. . Procedures No known history of procedures. Encounters Encounter Location Date/Time Departed Emergency Room [facility] 06/26/14 3:33pm Recent Diagnosis
--- OUTSIDE RECORDS SUMMARY | 2016-08-20 15:11 | XMS REPORT | Referral Summary ---
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 Role Phone Osman Lorenzo Primary Care Physician [phone] Encounter VC Date(s): 01/01/15 - 01/01/15 [facility] [address] [place] [id number] Discharge Disposition: 01-Home or Self Care Attending Physician: Latha Mathias APRN Admitting Physician: Latha Mathias APRN Vital Signs No data available for this section Problem List Condition Effective Dates Status Health Status Informant 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
--- OUTSIDE RECORDS SUMMARY | 2016-08-20 15:12 | XMS REPORT | Continuity of Care Document ---
Author Author [facility] Organization [facility] Address Unknown Phone Unavailable Support Name Relationship Address Phone BONNIE CARDOSO DO Caregiver [address] [phone] ANALISA BADILLO MD Caregiver [address] [phone] Unavailable YUNIEL FLETCHER MD Caregiver [address] [place] [address] [address] [place], [place] [phone] MANSI DANIELS Next Of Kin Unknown [phone] CP Insurance Providers Payer Name Policy Number Subscriber Name Relationship Medicare [id number] Tracey Estrella 16 Self [facility] [id number] Tracey Estrella 18 Self Advance Directives Directive [...] Instructions Order Date Discontinued Date Status Tiotropium [place] 18 Mcg IH DAILY 02/16/10 Active Flunisolide [...] F (96.8 - 99.1) Temperature (Calculated Celsius) 35.26614 degrees C (36.0 - 37.3) Pulse Rate [...] Has specimen been collected/obtained? Y Urine Specific [place] February 16, 2010 7:05am 1.015 - Has [...] October 10, 2013 9:10am < 2 0-7 RG-Hce-O-Type Natriuretic Peptide October 10, 2013 9:10am 1030 [...] Encounters Encounter Location Date/Time Departed Emergency Room [facility] 10/20/13 10:52am Departed Emergency Room [facility] 10/10/13 9:21am Recent Diagnosis
--- OUTSIDE RECORDS SUMMARY | 2016-08-20 15:12 | XMS REPORT | Referral Summary ---
Author Organization Unknown Address Unknown Phone Unavailable Encounter VC DAVID [id number] Date(s): 06/09/14 - 06/12/14 [facility] [address] [place] [address] [phone] Discharge Diagnosis: HTN (hypertension) Discharge Diagnosis: Acute on chronic respiratory failure Discharge Disposition: Home or Self Care Attending Physician: Baldomero Blank MD Admitting Physician: Baldomero Blank MD Vital Signs Most recent to 1 oldest [Reference Range]: Temperature Oral 36.7 degC [35.8-37.3 degC] (06/12/14 3:51 AM) Peripheral Pulse 91 bpm Rate [60-100 bpm] (06/12/14 9:26 AM) Heart Rate Monitored 76 bpm [60-100 bpm] (06/12/14 1:27 PM) Respiratory Rate 20 br/min [14-20 br/min] (06/12/14 1:27 PM) Blood Pressure 159/89 mmHg [90-140/60-90 mmHg] *HI* (06/12/14 9:26 AM) Mean Arterial 106 mmHg Pressure, Cuff (06/10/14 9:55 AM) Most recent to 1 oldest [Reference Range]: SpO2 95 % (06/12/14 10:07 AM) Problem List Condition Effective Dates Status Health Status Informant 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) COPD (chronic Active patient obstructive pulmonary disease)(Confirmed) CAD (coronary artery Active patient disease)(Confirmed) Impaired gas Resolved exchange(Confirmed)1 Knowledge Resolved deficit(Confirmed)2 WA (myocardial Active patient infarction)(Confirme d) Tobacco Active [...] needed for wheezing, rescue inhaler, 0 Refill(s) Special Instructions: rescue inhaler Start Date: 06/09/14 Status: Ordered aspirin 325 mg, Oral, Daily, 0 Refill(s) Start Date: 06/09/14 Status: Ordered azithromycin 250 mg oral tablet 1 tabs, Oral, Daily, # 2 Each, 0 Refill(s) Start Date: 06/14/14 Stop Date: 06/16/14 Status: Ordered cefpodoxime 200 mg oral tablet 1 tabs, Oral, q12hr, X 6 days, # 12 tabs, 0 Refill(s), other reason (Rx) Start Date: 06/12/14 Stop Date: 06/18/14 Status: Ordered cranberry 1,680 mg, Oral, Daily, [...] dose, seek immediate medical attention, 0 Refill(s) Special Instructions: If chest pain not relieved within 5 minutes of taking the 1st dose, seek immediate medical attention Start Date: 06/09/14 Status: Ordered omeprazole 20 mg, Oral, Daily, 0 Refill(s) Start Date: 06/09/14 Status: Ordered Plavix 75 mg, Oral, Daily, 0 Refill(s) Start Date: 06/09/14 Status: Ordered predniSONE 10 mg oral tablet See Instructions, 30 mg po daily 06/13-06/14/14 then 20 mg po daily 06/15- then 10 mg po daily 06/18-06/20/14 then DC #QS, # 1 Each, 0 Refill(s), other reason (Rx) Special Instructions: 30 mg po daily 06/13-06/14/14 then 20 mg po daily 06/15-06/17/14 then 10 mg po daily 06/18-06/20/14 then DC #QS Start Date: 06/12/14 Stop Date: 06/20/14 Status: Ordered rosuvastatin 20 mg, Oral, Daily, 0 Refill(s) Start Date: 06/09/14 Status: Ordered sertraline 50 mg, Oral, Daily, 0 Refill(s) Start Date: 06/09/14 Status: Ordered Spiriva 18 mcg, Inhalation, Daily, 0 Refill(s) Start Date: 06/09/14 Status: Ordered Symbicort 160 mcg-4.5 mcg/inh inhalation aerosol 2 puffs, Inhalation, BID, 0 Refill(s) Start Date: 06/09/14 Status: Ordered Results Hematology Most recent to 1 oldest [Reference Range]: WBC [4.8-10.8 K/uL] 20.6 K/uL *HI* (06/12/14 8:37 AM) RBC [4.60-6.20 M/uL] 4.97 M/uL (06/12/14 8:37 AM) Hgb [14.0-18.0 13.9 gm/dL gm/dL] *LOW* (06/12/14 8:37 AM) Hct [42.0-52.0 %] 43.1 % (06/12/14 8:37 AM) MCV [82.0-99.0 fL] 86.7 fL (06/12/14 8:37 AM) MCH [27.0-32.0 pg] 28.0 pg (06/12/14 8:37 AM) MCHC [32.0-36.0 32.3 gm/dL gm/dL] (06/12/14 8:37 AM) RDW [11.5-14.5 %] 14.6 % *HI* (06/12/14 8:37 AM) Platelet [150-400 336 K/uL K/uL] (06/12/14 8:37 AM) MPV [9.4-12.3 fL] 9.5 fL (06/12/14 8:37 AM) Immature 0.5 % Granulocytes (06/09/14 10:00 AM) [0.0-1.0 %] Neutrophils [51-75 67 % %] (06/09/14 10:00 AM) Lymphocytes [20-46 12 % %] *LOW* (06/09/14 10:00 AM) Monocytes [4-11 %] 21 % *HI* (06/09/14 10:00 AM) Eosinophils [0-4 %] 0 % (06/09/14 10:00 AM) Basophils [0-2 %] 0 % (06/09/14 10:00 AM) Neutro Absolute 3.71 THOUS [1.90-7.00 THOUS] (06/09/14 10:00 AM) Lymph Absolute 0.64 THOUS [0.80-3.30 THOUS] *LOW* (06/09/14 10:00 AM) [place] Absolute 1.17 THOUS [0.30-1.00 THOUS] *HI* (06/09/14 10:00 AM) Eos Absolute 0.00 THOUS [0.00-0.50 THOUS] (06/09/14 10:00 AM) Baso Absolute 0.00 THOUS [0.00-0.20 THOUS] (06/09/14 10:00 AM) Nucleated RBC 0.0 /100 WBC Automated [0 /100 (06/09/14 10:00 AM) WBC] Coagulation Most recent to 1 oldest [Reference Range]: INR [0.9-1.2] 1.1 (06/10/14 3:41 AM) Chemistry Most recent to 1 oldest [Reference Range]: Sodium Lvl [136-144 143 mEq/L mEq/L] (06/12/14 8:37 AM) Potassium Lvl 3.7 mEq/L [3.6-5.1 mEq/L] (06/12/14 8:37 AM) Chloride [99-109 97 mEq/L mEq/L] *LOW* (06/12/14 8:37 AM) CO2 [22-32 mEq/L] 37 mEq/L *HI* (06/12/14 8:37 AM) AGAP [3-20] 9 (06/12/14 8:37 AM) BUN [4-20 mg/dL] 40 mg/dL *HI* (06/12/14 8:37 AM) Glucose Lvl [70-100 120 mg/dL mg/dL] *HI* (06/12/14 8:37 AM) Creatinine Lvl 1.02 mg/dL [0.64-1.27 mg/dL] (06/12/14 8:37 AM) eGFR [>60] >60 4 (06/12/14 8:37 AM) Calcium Lvl 10.2 mg/dL [8.6-10.0 mg/dL] *HI* (06/12/14 8:37 AM) Albumin Lvl [3.5-4.8 3.0 gm/dL gm/dL] *LOW* (06/09/14 10:00 AM) Total Protein 7.0 gm/dL [6.1-7.9 gm/dL] (06/09/14 10:00 AM) Globulin [1.9-4.3 4.0 gm/dL gm/dL] (06/09/14 10:00 AM) ALT [17-63 unit/L] 24 unit/L (06/09/14 10:00 AM) AST [15-41 unit/L] 25 unit/L (06/09/14 10:00 AM) Alk Phos [26-104 70 unit/L unit/L] (06/09/14 10:00 AM) Bili Total [0.2-1.2 0.5 mg/dL 3 mg/dL] (06/09/14 10:00 AM) Magnesium Lvl 2.0 mg/dL [1.8-2.5 mg/dL] (06/10/14 3:41 AM) Phosphorus [2.4-4.7 2.3 mg/dL 2 mg/dL] *LOW* (06/10/14 3:41 AM) BNP [0-99 pg/mL] 191 pg/mL *HI* (06/12/14 8:37 AM) Troponin [<0.06 0.10 ng/mL 1 ng/mL] *HHI* (06/10/14 3:50 PM) Lactic Acid Lvl 1.4 mEq/L [0.5-2.2 mEq/L] (06/09/14 10:00 AM) Blood Glucose, 105 mg/dL Capillary [70-100 *HI* mg/dL] (06/12/14 11:27 AM) Chol [0-200 mg/dL] 98 mg/dL (06/10/14 3:41 AM) Trig [0-150 mg/dL] 81 mg/dL (06/10/14 3:41 AM) HDL [>40 mg/dL] 36 mg/dL *ABN* (06/10/14 3:41 AM) LDL [0-100 mg/dL] 46 mg/dL (06/10/14 3:41 AM) VLDL Cholesterol 16 mg/dL [0-30 mg/dL] (06/10/14 3:41 AM) Cardiac Risk 2.7 [0.0-5.7] (06/10/14 3:41 AM) TSH with Reflex Free 1.83 T4 [0.35-5.50] (06/09/14 8:39 PM) Hgb A1c [4.1-5.6 %] 6.5 % *HI* (06/09/14 8:39 PM) eAvg Glucose 139.9 mg/dL (06/09/14 8:39 PM) 1Result Comment: Critical value called, and read-back verified. Called to Stephane Ram 06/10/2014 16:26 2Result Comment: High dosages of liposomal Amphotericin B (AmBisome) therapy or other drug preparations that use a liposomal envelope to facilitate drug delivery may cause falsely elevated results for phosphorus. 3Result Comment: Naproxen, specifically the metabolite O-desmethylnaproxen, may cause spurious elevation in Total Bilirubin levels. 4Result Comment: Multiply eGFR results by 1.21 for race. Microbiology Reports PROCEDURE: Respiratory Virus Panel - PCR STATUS: Auth (Verified) BODY SITE: SOURCE: Nasopharyngeal Swab COLLECTED DATE/TIME: 06/09/14 8:56 PM PROCEDURE: Blood Culture STATUS: Order in Progress BODY SITE: SOURCE: Blood COLLECTED DATE/TIME: 06/09/14 11:23 AM PROCEDURE: Blood Culture STATUS: Order in Progress BODY SITE: SOURCE: Blood COLLECTED DATE/TIME: 06/09/14 11:18 AM Immunizations No data available for this section Procedures Procedure Date Related Diagnosis Body Site Placement of stent in cardiac conduit Social History Social History Type Response Smoking Status Former smoker Assessment and Plan No data available for this section
--- OUTSIDE RECORDS SUMMARY | 2016-08-20 15:12 | XMS REPORT | Referral Summary ---
Author Author [facility] Organization [facility] Address Unknown Phone Unavailable Care Team Providers Care College Tutor Name Role Phone Osman Lorenzo Primary Care Physician [phone] Encounter VC Date(s): 11/10/14 - 11/10/14 [facility] [address] [place] [address] Discharge Disposition: 01-Home or Self Care Attending Physician: Latha Mathias APRN Admitting Physician: Latha Mathias APRN Vital Signs No data available for this section Problem List Condition Effective Dates Status Health Status Informant 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
--- NOTE | 2016-08-20 15:25 | ERPDOC ---
Departure Disposition Decision Date: Aug 20, 2016 Disposition Decision Time: 18:51 (PETER MUELLER APRN) Disposition: 01 DISCHARGED HOME, SELF-CARE Impression Impression (PETER MUELLER APRN) Impression: Primary Impression: Pulmonary edema Chronicity: chronic Qualified Codes: J81.1 - Chronic pulmonary edema Additional Impressions: Acute exacerbation of congestive heart failure Congestive heart failure type: unspecified congestive heart failure type Qualified Codes: I50.9 - Heart failure, unspecified Hypoxia Severity: Moderate (PETER MUELLER APRN) Condition: Improved Seen By: Mid-level only (PETER MUELLER APRN) Referrals: YUNIEL FLETCHER MD (Family) Patient Instructions: Pulmonary Edema (ED) Problems/Meds/Labs Reviewed?: Yes Medications reviewed and manag: Yes (PETER MUELLER APRN) Additional Instructions: Your labs and chest x-ray indicated pulmonary edema. Follow treatment plan. Follow with your transportation solutions manager or PCP next week for re-evaluation. Follow up care ordered?: Yes Mental Status: Alert, Oriented (PETER MUELLER APRN) HPI - Dyspnea General Chief Complaint: Dyspnea/Respdistress Stated Complaint: DIFF BREATHING,CHEST PAIN Time Seen by Provider: 15:24 Source: patient, EMS (PETER MUELLER APRN) Time Seen by Provider: 15:24 (LEEANN DAVLIA DO) HPI - Dyspnea Initial Comments 81 YO M brought to ED via EMS for dyspnea and low SpO2. Patient reports that he became lightheaded and SOA when leaving his house today. He called EMS who reported getting SpO2 in the 70s. Patient arrives on a NRB at 10 L of O2. [facility]. Patient reports the only medication he was sent home on was a prednisone taper. Patient denies any fever, chills, CP, nausea or diaphoresis. Admits intermittent nonproductive cough. Patient is immediately able to go home O2/NC at 4L after arriving to the ED maintaining SpO2 above 93%. Patient is always on O2/NC at 3-4L. RN who received patient states that patient has cool hands and wonders if initial SpO2 was accurate from EMS. Associated Symptoms: cough, shortness of breath, DENIES: chest pain, diaphoresis, fever/chills, loss of appetite, malaise, nausea/vomiting, syncope, weakness (ELSY MUELLERS A THERMOMETER TESTER) Allergies: Coded Allergies: No Known Allergies (Verified , 07/16/15) Past History Past Medical History Metabolic: cancer, hypercholesterolemia, hypertension Cardiac: CAD, CHF Respiratory: COPD (emphysema), pneumonia GI: DENIES: ulcers Male: DENIES: renal insufficiency Neurological: DENIES: seizures Musculoskeletal: DENIES: back pain, neck pain Psychological: DENIES: depression (ELSY MUELLERS A THERMOMETER TESTER) Surgical History General: hernia Cardiac: cardiac stent, implantable defib, pacemaker Reproductive/: prostatectomy Joint: foot (PETER MUELLER THERMOMETER TESTER) Family History Family PMH: FOUND: hypertension (PETER MUELLER THERMOMETER TESTER) Vaccines Hx Influenza Vaccination: Yes (FALL 2013) Hx Pneumococcal Vaccination: Yes (FALL 2007) (PETER MUELLER THERMOMETER TESTER) Social History Current Occupational Status: retired (PETER MUELLER APRN) Review of Systems Constitutional Constitutional: DENIES: chills, dizziness, fever, weakness (ELSY MUELLERS A THERMOMETER TESTER) Eyes General: DENIES: erythema, exudate Lids/Accessories: DENIES: erythema, swelling (ELSY MUELELRS A THERMOMETER TESTER) ENMT Ears: DENIES: pain Sinuses: DENIES: congestion, rhinorrhea Mouth/Throat: DENIES: sore throat (ELSY MUELLERS A THERMOMETER TESTER) Cardiovascular Cardiac: DENIES: chest pain, dyspnea on exertion, murmur Rhythm/Rate: DENIES: palpitations (ELSY MUELLERS A THERMOMETER TESTER) Pulmonary Respiratory: cough, dyspnea, see HPI (ELSY MUELLERS A THERMOMETER TESTER) GI Upper Abdomen: DENIES: nausea, pain, vomiting Lower Abdomen: DENIES: diarrhea, pain (ELSY MUELLERS A THERMOMETER TESTER) General: DENIES: dysuria, pain (ELSY MUELLERS A THERMOMETER TESTER) Musculoskeletal General: DENIES: joint pain, pain, tenderness (ELSY MUELLERS A THERMOMETER TESTER) Integumentary Skin: DENIES: color change, itching, rash (ELSY MUELLERS A THERMOMETER TESTER) Neurological General: DENIES: ataxia, change in strength, numbness, paralysis/paresis, weakness (ELSY MUELLERS A THERMOMETER TESTER) Psychiatric Psychiatric: DENIES: anxiety, depression, nervousness (ELSY MUELLERS A THERMOMETER TESTER) Physical Exam General General Nourishment: well nourished, well developed, adult General Body Habitus: disheveled (PETER MUELLER A THERMOMETER TESTER) Vitals and Pain (LEEANN DAVILA DO) Vitals and Pain Weight: Kilograms: 60.300 Height (feet): 5 Height (inches): 9.00 Triage Pain Scale: (ELSY MUELLERS A THERMOMETER TESTER) Eyes (brief) Eyes Brief: found: EOMI (ELSY MUELLERS A THERMOMETER TESTER) ENMT (brief) ENMT Brief: FOUND: mucosa moist, NOT FOUND: nasal exudate, nasal swelling, pharnyx erythema (ELSY MUELLERS A THERMOMETER TESTER) Neck (brief) Neck: FOUND: trachea midline, NOT FOUND: adenopathy, tenderness, thyromegaly ( ELSY MUELLERS A THERMOMETER TESTER) Respiratory Inspection: FOUND: tachypnea (24), NOT FOUND: asymmetry Auscultation: FOUND: decreased (diminished throughout), NOT FOUND: rales, wheezes (ELSY MUELLERS A THERMOMETER TESTER) Cardiovascular (brief) Cardiac: FOUND: regular rate, regular rhythm Pulses: all distal extremities, equal (ELSY MUELLERS A THERMOMETER TESTER) Abdomen (brief) Abdominal Brief: FOUND: bowel normo active x4, soft, NOT FOUND: tender (ELSY MUELLERS A THERMOMETER TESTER) Musculoskeletal (brief) Musculoskeletal Brief: NOT FOUND: deformity, loss of motion (ELSY MUELLERS A THERMOMETER TESTER) Integumentary (brief) Integumentary Brief: FOUND: dry, pink, warm (ELSY MUELLERS A THERMOMETER TESTER) Neurologic (brief) Neurological Brief: FOUND: motor-no gross deficits, sensory-no gross deficits ( ELSY MUELLERS A THERMOMETER TESTER) Psychiatric (brief) Psychiatric Brief: FOUND: alert, normal affect, oriented (ELSY MUELLERS A THERMOMETER TESTER ) Differential Diagnoses Considering: Acute Bronchitis, Acute IN, CHF, COPD Exacerbation, Pneumonia, Pulmonary Edema (ELSY MUELLERS A THERMOMETER TESTER) Progress Results/Orders Orders Procedure Category Date Status Time Cmp - Comprehensive LAB 08/20/16 Complete Metabolic 15:31 Probnp LAB 08/20/16 Complete 15:31 Cbc W/Auto LAB 08/20/16 Complete Diff-Reflex Manual 15:31 Troponin I W LAB 08/20/16 Complete Hemolysis Index 15:31 EKG EKG 08/20/16 Taken 15:31 Chest, Pa & Lateral RAD 08/20/16 Resulted 15:31 Iv Lock (Ed Only) EDM 08/20/16 Transmitted 15:31 Albuterol/Ipratropium PHA 08/20/16 Complete (Duoneb) 15:45 Oxygen Administration EDM 08/20/16 Transmitted 15:31 Furosemide (Lasix) PHA 08/20/16 Complete 16:45 Blood Culture BARB 08/20/16 Complete Lactate - Lactic Acid LAB 08/20/16 Complete (LEEANN DAVILA DO) Lab Results Laboratory Tests Test 08/20/16 15:00 08/20/16 17:33 White Blood Count 16.7T/MM3 Red Blood Count 4.06M/MM3 Hemoglobin 11.9GM/DL Hematocrit 40.2% Mean Corpuscular Volume 99.0UM3 Mean Corpuscular Hemoglobin 29.3UUG Mean Corpuscular Hemoglobin Concent 29.6GM/DL RDW Standard Deviation 50.7FL Platelet Count 211T/MM3 Mean Platelet Volume 10.4UM3 Immature Granulocyte % (Auto) % Neutrophils (%) (Auto) % Lymphocytes (%) (Auto) % Monocytes (%) (Auto) % Eosinophils (%) (Auto) % Basophils (%) (Auto) % Absolute Immature Granulocyte (auto T/MM3 Absolute Neutrophils (auto) T/MM3 Absolute Lymphocytes (auto) T/MM3 Absolute Monocytes (auto) T/MM3 Absolute Eosinophils (auto) T/MM3 Absolute Basophils (auto) T/MM3 Neutrophils % (Manual) 53.0% Lymphocytes % (Manual) 37.0% Reactive Lymphocytes % 2.0% Monocytes % (Manual) 4.0% Eosinophils % (Manual) 4.0% Absolute Neutrophils (Manual) 8.9T/MM3 Lymphocytes # (Manual) 6.2T/MM3 Reactive Lymphocytes # 0.3T/MM3 Monocytes # (Manual) 0.7T/MM3 Eosinophils # (Manual) 0.7T/MM3 Red Cell Morphology Comment Normal Turbidity < 20 Sodium Level 148MEQ/L Potassium Level 4.6MEQ/L Chloride Level 104MEQ/L Carbon Dioxide Level 28MEQ/L Anion Gap 16MEQ/L Blood Urea Nitrogen 21.0MG/DL Creatinine 1.0MG/DL Glomerular Filtration Rate Calc 71 BUN/Creatinine Ratio 21RATIO Glucose Level 272MG/DL Calculated Osmolality 297MOSM/KG Calcium Level 10.0MG/DL Total Bilirubin 0.40MG/DL Icterus Index < 2 Aspartate Amino Transf (AST/SGOT) 186U/L Alanine Aminotransferase (ALT/SGPT) 108U/L Alkaline Phosphatase 70U/L Troponin I 0.032ng/ml BN-Spm-N-Type Natriuretic Peptide 5260PG/ML Total Protein 6.1G/DL Albumin 3.8G/DL Globulin 2.3G/DL Albumin/Globulin Ratio 1.7RATIO Chemistry Specimen Hemolysis < 15 Plasma Lactate 1.3MMOL/L (LEEANN DAVILA DO) Medications Current ED Medications Albuterol/ Ipratropium (Duoneb) 3 ml O ONCE AEROSOL Last administered on 15:57; Start 08/20/16 at 15:45; Stop 08/20/16 at 15:46; Status DC Furosemide (Lasix) 40 mg O ONCE IV Last administered on 08/20/16 16:59; Start 08/20/16 at 16:45; Stop 08/20/16 at 16:46; Status DC (LEEANN DAVILA DO) Progress Progress Patient is on 4L/NC of O2 which is patient's baseline WBC 16.7 most likely elevated from prednisone, patient has reactive lymph, no bands Troponin 0.032 most likely elevated due to fluid overload Pro BNP 5260 AST 186 ALT 108 Lactate 1.3 Patient reports feeling much better after 40mg of lasix IV. Patient has void large amount of urine, however patient is incontinent so unable to measure amount. I discussed patient's HPI, PMH, labs, EKG, CXR, VS with Dr. Davila who agrees with plan of care. I discussed labs, EKG, CXR and conversation I had with Dr. Mueller at the OR. Patient states he would like to go home. Patient verbalized understanding of treatment plan, close follow up with PCP and return precautions. (PETER MUELLER APRN) Progress Chest x-ray shows infiltrates consistent with fluid overload. There are no findings currently suggestive of an infectious infiltrate. Patient's white blood cell count is most likely reactive secondary to prednisone. Patient is on his home oxygen settings in the emergency department and is not hypoxic. Patient is discussed with OR who does not feel the patient meets criteria for admission to their facility. Patient is offered admission to [facility] which he declines. Patient states that he does not wish to be admitted to the hospital and will pursue outpatient follow-up. He was given Lasix in the emergency department with improvement of symptoms. Risk versus benefit of outpatient follow-up as opposed to admission to the hospital were discussed in detail with the patient who verbalizes agreement and understanding. Labs/ imaging were discussed in detail with the patient and questions are answered. Patient's diuresis will be managed by his primary care physician. Patient is to follow up with his primary care physician tomorrow. He is to return to the emergency department if his condition worsens or changes in any manner. Patient is in agreement with the current plan of management. He is discharged home in improved condition. (LEEANN DAVILA DO) EKG EKG : Rate: 60-100 Rhythm: sinus QRS: RBBB Intervals: normal ST/T: non-specific changes Interpreted by: signing physician (Dr. Davila) (PETER MUELLER APRN) Consult/PCP Consult/PCP : Physician Contacted: Dr. Mueller Type of discussion: Admit Discussion/PCP Discussion Details I discussed patient's HPI, PMH, labs, EKG, CXR, VS, exam findings and treatment in our ED with Dr. Mueller at the OR ED. Dr. Mueller said that he does not feel that patient needs to be admitted. Dr. Mueller agrees treated pulmonary edema with lasix. Patient may go home and follow with PCP for re-evaluation. (PETER MUELLER APRN) Xray Xray : Xray: CXR PA/Lat (fluid overload, cannot rule out infiltrated (Dr. Davila)) (PETER MUELLER APRN) PETER MUELLER APRN Aug 20, 2016 15:25 LEEANN DAVILA DO Aug 22, 2016 18:40 LEEANN DAVILA DO Aug 22, 2016 18:40
[2016-08-20] MEDS ORDERED: FORM12CA ORAL INH (15:41)
[2016-08-20] MEDS ORDERED: MOME220A2 ORAL INH (15:41)
[2016-08-20] MEDS ORDERED: ROSU20TA PO (15:41)
[2016-08-20 15:42] LABS: HCT - HEMATOCRIT 40.2 % (41-53); HGB - HEMOGLOBIN 11.9 GM/DL (13.5-17.5); MEAN CORPUSCULAR HGB 29.3 UUG (26-34); MEAN CORPUSCULAR HGB CONC(MCHC 29.6 GM/DL (31-37); MEAN PLATELET VOLUME 10.4 UM3 (9.4-12.4); RED BLOOD COUNT 4.06 M/MM3 (4.50-5.90); WBC - WHITE BLOOD COUNT 16.7 T/MM3 (4.5-11.0)
[2016-08-20] MEDS ORDERED: ALBUTEROL/IPRATROPIUM INHAL. 2.5mg-0.5mg/3ml Neb. AEROSOL ONE (15:45)
[2016-08-20] MEDS ORDERED: ASPI81TA2 PO (15:46)
[2016-08-20] MEDS ORDERED: FOLI0.4T2 PO (15:46)
[2016-08-20] MEDS ORDERED: LANS15CA5 PO (15:46)
[2016-08-20 15:53] LABS: ALBUMIN 3.8 G/DL (3.5-5.0); ALBUMIN/GLOBULIN RATIO 1.7 RATIO (1.1-2.2); ALKALINE PHOSPHATASE 70 U/L (38-126); ALT (SGPT) 108 U/L (21-72); ANION GAP 16 MEQ/L (5-15); AST (SGOT) 186 U/L (17-59); BUN/CREATININE RATIO 21 RATIO (6-26); CHLORIDE 104 MEQ/L (98-107); CO2 - CARBON DIOXIDE 28 MEQ/L (22-30); GLOMERULAR FILTRATION RATE 71; GLUCOSE 272 MG/DL (75-110); POTASSIUM 4.6 MEQ/L (3.6-5); SODIUM 148 MEQ/L (134-144); TOTAL PROTEIN 6.1 G/DL (6.3-8.2)
[2016-08-20 16:04] LABS: PROBNP 5260 PG/ML (0-175)
[2016-08-20 16:06] LABS: EOSINOPHILS # (MANUAL) 0.7 T/MM3 (0-0.5); LYMPHOCYTES # (MANUAL) 6.2 T/MM3 (1-4.8); MONOCYTES # (MANUAL) 0.7 T/MM3 (0-0.8); NEUTROPHILS #(MANUAL)-ABSOLUTE 8.9 T/MM3 (1.8-7.7); REACTIVE LYMPHOCYTES # 0.3 T/MM3 (0-0); TOTAL CELLS COUNTED 100 %
[2016-08-20] MEDS ORDERED: FUROSEMIDE 40 MG/4 ML INJECTION IV ONE (16:45)
--- OUTSIDE RECORDS SUMMARY | 2016-08-20 17:59 | XMS REPORT | Continuity of Care Document ---
Author Author [facility] Organization [facility] Address Unknown Phone Unavailable Support Name Relationship Address Phone YUNIEL FLETCHER MD Caregiver [address] [place] [phone] JONNA GUZMAN MD Caregiver [address] [place] [phone] MANSI DANIELS Next Of Kin Unknown [phone] CP Insurance Providers Payer Name Policy Number Subscriber Name Relationship Medicare [id number] Tracey Estrella 16 Self [facility] [id number] Tracey Estrella 16 Self Advance Directives Directive [...] Instructions Order Date Discontinued Date Status Tiotropium [place] 18 Mcg IH DAILY 02/16/10 Active Flunisolide [...] F (96.8 - 99.1) Temperature (Calculated Celsius) 36.43235 degrees C (36.0 - 37.3) Pulse Rate [...] 10, 2013 9:10am 6.9 % N 0-9.0 HJ-Okq-I-Type Natriuretic Peptide July 08, 2014 8:30pm 3590 [...] Has specimen been collected/obtained? Y Urine Specific [place] February 16, 2010 7:05am 1.015 - Has [...] 5 DAYS Name: TRACEY ESTRELLA Unit #: [id number] : 1935 Sex: M Loc / Svc: ED DOS: 06/26/14 Signed Report #: [id number] DIAGNOSTIC IMAGING REPORT TYPE OF EXAM: CHEST, [...] completed 06/26/14 EMERGENCY DEPT VISIT completed 06/26/14 497012"INJECTION, LEVOFLOXACIN, 250 MG" completed 06/26/14095906"INJECTION, METHYLPREDNISOLONE SODIUM SUCCINATE, UP TO completed 003"INFUSION, NORMAL SALINE SOLUTION , 1000 CC" completed 06/26/148872496% DEXTROSE/WATER (500 ML=1 UNIT) completed 06/26/14 Encounters Encounter Location Date/Time Departed Emergency Room [facility] 07/08/14 8:32pm Departed Emergency Room [facility] 06/26/14 3:33pm Recent Diagnosis
--- OUTSIDE RECORDS SUMMARY | 2016-08-20 18:00 | XMS REPORT | Continuity of Care Document ---
Author Author [facility] Organization [facility] Address Unknown Phone Unavailable Support Name Relationship Address Phone YUNIEL FLETCHER MD Caregiver [address] [place] [phone] FANNY BARBA MD Caregiver [address] [place] [phone] MANSI DANIELS Next Of Kin Unknown [phone] Insurance Providers Payer Name Policy Number Subscriber Name Relationship Medicare [id number] Tracey Estrella 16 Self [facility] [id number] Tracey Estrella 16 Self Advance Directives Directive [...] Instructions Order Date Discontinued Date Status Tiotropium [place] 18 Mcg IH DAILY 02/16/10 Active Flunisolide [...] F (96.8 - 99.1) Temperature (Calculated Celsius) 36.08133 degrees C (36.0 - 37.3) Pulse Rate [...] 10, 2013 9:10am 6.9 % N 0-9.0 TT-Uat-M-Type Natriuretic Peptide June 26, 2014 3:15pm 2870 [...] Has specimen been collected/obtained? Y Urine Specific [place] February 16, 2010 7:05am 1.015 - Has [...] Escherichia Coli Name: TRACEY ESTRELLA Unit #: [id number] : 1935 Sex: M Loc / Sv: ED DOS: 06/26/14 Signed Report #: [id number] DIAGNOSTIC IMAGING REPORT TYPE OF EXAM: CHEST, [...] Encounters Encounter Location Date/Time Departed Emergency Room [facility] 06/26/14 3:33pm Recent Diagnosis
--- OUTSIDE RECORDS SUMMARY | 2016-08-20 18:00 | XMS REPORT | Continuity of Care Document ---
Author Author [facility] Organization [facility] Address Unknown Phone Unavailable Support Name Relationship Address Phone BONNIE CARDOSO DO Caregiver [address] [phone] ANALISA BADILLO MD Caregiver [address] [address] Unavailable YUNIEL FLETCHER MD Caregiver [address] [place] [address] [address] [place], [place] [phone] MANSI DANIELS Next Of Kin Unknown [phone] CP Insurance Providers Payer Name Policy Number Subscriber Name Relationship Medicare [id number] Tracey Estrella 16 Self [facility] [id number] Tracey Estrella 16 Self Advance Directives Directive [...] Instructions Order Date Discontinued Date Status Tiotropium [place] 18 Mcg IH DAILY 02/16/10 Active Flunisolide [...] F (96.8 - 99.1) Temperature (Calculated Celsius) 35.04473 degrees C (36.0 - 37.3) Pulse Rate [...] Has specimen been collected/obtained? Y Urine Specific [place] February 16, 2010 7:05am 1.015 - Has [...] October 10, 2013 9:10am < 2 0-7 IG-Nne-L-Type Natriuretic Peptide October 10, 2013 9:10am 1030 [...] Encounters Encounter Location Date/Time Departed Emergency Room [facility] 10/20/13 10:52am Departed Emergency Room [facility] 10/10/13 9:21am Recent Diagnosis
--- OUTSIDE RECORDS SUMMARY | 2016-08-20 18:00 | XMS REPORT | Continuity of Care Document ---
Author Author [facility] Organization [facility] Address Unknown Phone Unavailable Allergies Active Description [...] Blank MD Final 414.01 CORONARY ATHEROSCLEROSIS OF [place] CORONARY ARTERY 06/19/2014 Baldomero Blank MD Final [...] Status Pt. Type Provider Facility Loc./Unit Complaint [id number] 06/09/2014 09:40:00 2014 14:31:00 DIS Inpatient Baldomero Blank MD [facility] on [address] [facility] [id number] Pneumonia/ COPD exacerbation/ Resiratory Distress
--- OUTSIDE RECORDS SUMMARY | 2016-08-20 18:00 | XMS REPORT | Continuity of Care Document ---
Author Author [facility] Organization [facility] Address Unknown Phone Unavailable Support Name Relationship Address Phone BONNIE CARDOSO DO Caregiver [address] [phone] ANALISA BADILLO MD Caregiver [address] [address] Unavailable YUNIEL FLETCHER MD Caregiver [address] [place] [address] [address] [place] [place], [place] [phone] MANSI DANIELS Next Of Kin Unknown [phone] CP Insurance Providers Payer Name Policy Number Subscriber Name Relationship Medicare [id number] Tracey Estrella 16 Self [facility] [id number] Tracey Estrella 16 Self Advance Directives Directive [...] Instructions Order Date Discontinued Date Status Tiotropium [place] 18 Mcg IH DAILY 02/16/10 Active Flunisolide [...] F (96.8 - 99.1) Temperature (Calculated Celsius) 35.08719 degrees C (36.0 - 37.3) Pulse Rate [...] Has specimen been collected/obtained? Y Urine Specific [place] February 16, 2010 7:05am 1.015 - Has [...] October 10, 2013 9:10am < 2 0-7 DA-Nbe-J-Type Natriuretic Peptide October 10, 2013 9:10am 1030 [...] Encounters Encounter Location Date/Time Departed Emergency Room [facility] 10/20/13 10:52am Departed Emergency Room [facility] 10/10/13 9:21am Recent Diagnosis
[2016-08-20 19:25] VITALS: BP 118/61; PULSE 78; RESP 22; TEMP 97.3; O2SAT 96
--- NOTE | 2016-08-21 09:14 | DI ---
INDICATION: ITS.REASON: SOA, hx. of pneumonia PROCEDURE: CHEST 2-VIEWS UPRIGHT (PA \T\ LAT) Encounter: Initial COMPARISON: October 15, 2014 FINDINGS: Interval development of moderate pulmonary edema with interstitial prominence. Small pleural effusions. Also evidence of emphysema with hyperinflation. No pneumothorax. Heart size and mediastinal contours are stable with left cardiac pacemaker defibrillator. Bilateral old healed rib fractures. Impression: Moderate pulmonary edema, probably due to CHF. .
== END 2016-08-20 19:25 | disposition home or self-care (01) ==
LOC: ED 15:07
DX: I11.0 Hypertensive heart disease with heart failure (principal); I50.1 Left ventricular failure, unspecified; R09.02 Hypoxemia; J44.9 Chronic obstructive pulmonary disease, unspecified
CPT/HCPCS: 36415; 71020; 80053; 83605; 83880; 84484; 85025; 87040; 93005; 94640; 96374; 99284; J1940